=== PATIENT | male | born 1990 | race American Indian/Alaskan Native ===

== ENCOUNTER 2020-07-21 22:08 | Emergency (ER) | payer SELFPAY | END 2020-07-21 22:12 | disposition left against medical advice (07) | LOC: ED 22:08 | DX: R07.0 Pain in throat (principal); Z53.21 Procedure and treatment not carried out due to patient leaving prior to being seen by health care provider ==

== ENCOUNTER 2021-09-17 12:37 | Emergency (ER) | payer SELFPAY ==
[2021-09-17 15:24] VITALS: BP 129/91
--- NOTE | 2021-09-17 15:51 | XRay Report ---
CHEST 2 VIEWS INDICATION: sob,cough and rales. COMPARISON: None FINDINGS: SUPPORT DEVICES: None. HEART: Within normal limits. LUNGS/PLEURA: No acute air space or interstitial disease. No pneumothorax. ADDITIONAL FINDINGS: None. IMPRESSION: 1. No acute findings. Signer Name: Marcial Hoyt MD Signed: 09/17/2021 3:47 PM Workstation Name: [id number]
[2021-09-17 16:06] LABS: Basophils % (Auto) 0.3 % (0.0-1.8); Eosinophils % (Auto) 0.2 % (0.0-4.3); Hemoglobin 12.9 gm/dl (11.8-15.2); Lymphocytes % (Auto) 39.8 % (13.4-35.0); Mean Corpuscular HGB Conc 32 % (32-34); Mean Corpuscular Volume 84 fl (84-94); Monocytes # (Auto) 0.5 K/mm3 (0.0-0.8); Monocytes % (Auto) 9.7 % (0.0-7.3); Platelet Count 240 K/mm3 (140-440); Red Blood Count 4.76 M/mm3 (3.65-5.03); Red Cell Distribution Width 14.8 % (13.2-15.2)
[2021-09-17 16:26] LABS: Alanine Aminotransferase 23 units/L (7-56); Albumin 4.7 g/dL (3.9-5); BUN/Creatinine Ratio 13; Blood Urea Nitrogen 8 mg/dL (9-20); Calcium 9.6 mg/dL (8.4-10.2); Hemolysis Index 22
--- NOTE | 2021-09-17 16:36 | Emergency Department Report ---
ED General Adult HPI - General Chief complaint: Weakness Stated complaint: WEAKNESS/FATIGUE Time Seen by Provider: 09/17/21 15:56 Source: patient Mode of arrival: Ambulatory Limitations: No Limitations - History of Present Illness Initial comments: Patient is a 31-year-old male presents emergency room complaints of generalized weakness and fatigue for a couple of weeks. He states he believes his symptoms are due to being off his medication. He states he has been off his HIV medication for approximately 6 months. he states [facility] [employer] [facility] [employer] but he just stopped going due to working often. Patient states that he needs a work excuse for his job. He denies any fever, nausea, vomiting, diarrhea. No allergies to medications. Patient denies any other medical hx. ED Review of Systems ROS: Stated complaint: WEAKNESS/FATIGUE Other details as noted in HPI Comment: All other systems reviewed and negative ED Physical Exam - General Limitations: No Limitations General appearance: alert, in no apparent distress - Head Head exam: Present: atraumatic, normocephalic - Eye Eye exam: Present: normal appearance - Respiratory Respiratory exam: Present: normal lung sounds bilaterally. Absent: respiratory distress, wheezes, rales, rhonchi, stridor, chest wall tenderness, accessory muscle use, decreased breath sounds, prolonged expiratory - Cardiovascular Cardiovascular Exam: Present: regular rate, normal rhythm, normal heart sounds. Absent: systolic murmur, diastolic murmur, rubs, gallop - Neurological Exam Neurological exam: Present: alert, oriented X3 - Psychiatric Psychiatric exam: Present: normal affect, normal mood - Skin Skin exam: Present: warm, dry, intact ED Course Vital Signs 09/17/21 15:16 Temperature 98.5 F Pulse Rate 90 Respiratory 15 Rate Blood Pressure 129/91 O2 Sat by Pulse 100 Oximetry ED Medical Decision Making - Lab Data Result diagrams: 09/17/21 15:51 09/17/21 15:51 Lab Results 09/17/21 09/17/21 Range/Units 15:51 15:51 WBC 5.1 (4.5-11.0) K/mm3 RBC 4.76 (3.65-5.03) M/mm3 Hgb 12.9 (11.8-15.2) gm/dl Hct 40.0 (35.5-45.6) % MCV 84 (84-94) fl MCH 27 L (28-32) pg MCHC 32 (32-34) % RDW 14.8 (13.2-15.2) % Plt Count 240 (140-440) K/mm3 Lymph % (Auto) 39.8 H (13.4-35.0) % [place] % (Auto) 9.7 H (0.0-7.3) % Eos % (Auto) 0.2 (0.0-4.3) % Baso % (Auto) 0.3 (0.0-1.8) % Lymph # (Auto) 2.0 (1.2-5.4) K/mm3 [place] # (Auto) 0.5 (0.0-0.8) K/mm3 Eos # (Auto) 0.0 (0.0-0.4) K/mm3 Baso # (Auto) 0.0 (0.0-0.1) K/mm3 Seg Neutrophils % 50.0 (40.0-70.0) % Seg Neutrophils # 2.6 (1.8-7.7) K/mm3 Sodium 141 (137-145) mmol/L Potassium 4.3 (3.6-5.0) mmol/L Chloride 105.8 (98-107) mmol/L Carbon Dioxide 24 (22-30) mmol/L Anion Gap 16 mmol/L BUN 8 L (9-20) mg/dL Creatinine 0.6 L (0.8-1.3) mg/dL Estimated GFR > 60 ml/min BUN/Creatinine Ratio 13 % Glucose 96 (75-100) mg/dL Calcium 9.6 (8.4-10.2) mg/dL Total Bilirubin 0.20 (0.1-1.2) mg/dL AST 20 (5-40) units/L ALT 23 (7-56) units/L Alkaline Phosphatase 48 (35-129) units/L Total Protein 7.7 (6.3-8.2) g/dL Albumin 4.7 (3.9-5) g/dL Albumin/Globulin Ratio 1.6 % - Radiology Data Radiology results: report reviewed Ordering Physician: BRODIE WELDON Date of Service: 09/17/21 Procedure(s): XR chest routine 2V Accession Number(s): [id number] cc: BRODIE WELDON Fluoro Time In Minutes: CHEST 2 VIEWS INDICATION: sob,cough and rales. COMPARISON: None FINDINGS: SUPPORT DEVICES: None. HEART: Within normal limits. LUNGS/PLEURA: No acute air space or interstitial disease. No pneumothorax. ADDITIONAL FINDINGS: None. IMPRESSION: 1. No acute findings. Signer Name: Marcial Hoyt MD Signed: 09/17/2021 3:47 PM Workstation Name: [id number] Transcribed By: ALY Dictated By: Marcial Hoyt MD Electronically Authenticated By: Marcial Hoyt MD Signed Date/Time: 09/17/211546 DD/ 45 TD/TT: - Medical Decision Making Patient is a 31-year-old male presents emergency room complaints of generalized weakness and fatigue for a couple of weeks. He states he believes his symptoms are due to being off his medication. He states he has been off his HIV medication for approximately 6 months. he states he was going to the [employer] but he just stopped going due to working often. Patient states that he needs a work excuse for his job. He denies any fever, nausea, vomiting, diarrhea. No allergies to medications. Patient denies any other medical hx. vitals are stable. Patient is nontoxic-appearing. Labs are stable. Chest x- ray 1. No acute findings. Discussed all findings with patient. Stressed the importance of getting back on his HIV medications. Advised patient Please follow-up with a clinic in order to get back on your HIV medications. It is very important that you get back on your medications. Return to emergency room for any new or worsening symptoms. Critical care attestation.: If time is entered above; I have spent that time in minutes in the direct care of this critically ill patient, excluding procedure time. ED Disposition Clinical Impression: Weakness, Non compliance w medication regimen Fatigue Qualifiers: Fatigue type: unspecified Qualified Code(s): R53.83 - Other fatigue Disposition: HOME / SELF CARE / HOMELESS Is pt being admited?: No Does the pt Need Aspirin: No Condition: Stable Instructions: How to Care for Yourself When You Have HIV Additional Instructions: Please follow-up with a clinic in order to get back on your HIV medications. It is very important that you get back on your medications. Return to emergency room for any new or worsening symptoms. [facility] Address: [address] [place] [address] [facility] [place] Address: [address], [place] [address] Referrals: [facility] [Outside] - 3-5 Days Forms: Work/School Release Form(ED) Time of Disposition: 16:34 Print Language: TURKISH
== END 2021-09-17 16:55 | disposition home or self-care (01) ==
LOC: ED 12:37
DX: R53.1 Weakness (principal); R53.83 Other fatigue; Z91.14 Patient's other noncompliance with medication regimen
CPT/HCPCS: 36415; 71046; 80053; 85025; 99283

== ENCOUNTER 2022-04-05 11:38 | Emergency (ER) | payer SELFPAY ==
[2022-04-05 11:46] VITALS: BP 129/67
== END 2022-04-06 02:00 | disposition left against medical advice (07) ==
LOC: ED 11:38
DX: F10.239 Alcohol dependence with withdrawal, unspecified (principal); Z53.21 Procedure and treatment not carried out due to patient leaving prior to being seen by health care provider